=== PATIENT | male | born 1980 | race Caucasian/White ===

== ENCOUNTER → 2018-09-20 12:14 | Emergency (ER) | payer MEDICARE, MEDICAID ==
[~2018-09-20 12:14] MED LIST: Cephalexin CAP* 500 MG PO ONE; Gabapentin CAP(*) 400 MG PO ONE; Ibuprofen TAB* 600 MG PO ONE; Nicotine PATCH 21 MG/24 HR* PATCH TRANSDERM ONE; hydrOXYzine HCL TAB* 25 MG PO ONE; oxyCODONE TAB* 5 MG TAB PO ONE
[2018-09-20 12:45] LABS: Urine Appearance Clear; Urine Bilirubin Negative (Negative); Urine Blood Negative (Negative); Urine Color Yellow; Urine Glucose Negative (Negative); Urine Ketones Negative (Negative); Urine Nitrite Negative (Negative); Urine Protein Negative (Negative); Urine Specific Gravity 1.016 (1.010-1.030); Urine Urobilinogen Negative (Negative)
[2018-09-20 13:01] LABS: ABS Basophils 0.1 10^3/ul (0-0.2); ABS Eosinophils 0.1 10^3/ul (0-0.6); ABS Lymphocytes 1.9 10^3/ul (1.0-4.8); ABS Monocytes 0.5 10^3/ul (0-0.8); ABS Neutrophils 4.8 10^3/ul (1.5-7.7); ABS Nucleated RBC 0 10^3/ul; Eosinophil % 0.9 %; Hematocrit 47 % (36-46); Hemoglobin 16.1 g/dL (14.0-18.0); Lymphocyte % 25.9 %; Mean Corpuscular HGB Conc 35 g/dL (31-36); Mean Corpuscular Hemoglobin 31 pg (27-31); Mean Corpuscular Volume 89 fL (80-94); Mean Platelet Volume 8.3 fL (7.4-10.4); Nucleated Red Blood Cells % 0; Platelet Count 246 10^3/uL (150-450); Red Blood Count 5.24 10^6 /uL (4.18-5.48); Red Cell Distribution Width 14 % (10.5-15); White Blood Count 7.3 10^3/uL (3.5-10.8)
[2018-09-20 13:11] LABS: Urine Benzodiazepine Screen None Detected (None Detect); Urine Opiates Screen None Detected (None Detect)
[2018-09-20 13:13] LABS: ALT 27 U/L (7-52); AST 21 U/L (13-39); Acetaminophen < 15 mcg/mL; Albumin 4.7 g/dL (3.2-5.2); Albumin/Globulin Ratio 1.5 (1-3); Alcohol < 10 mg/dL (<10); Alkaline Phosphatase 55 U/L (34-104); Anion Gap 10 mmol/L (2-11); BUN/Creatinine Ratio 18.2 (8-20); Blood Urea Nitrogen 18 mg/dL (6-24); CO2 Carbon Dioxide 26 mmol/L (22-32); Calcium 9.4 mg/dL (8.6-10.3); Chloride 102 mmol/L (101-111); EGFR African American 101.3 (>60); EGFR Non-African American 83.7 (>60); Globulin 3.2 g/dL (2-4); Glucose 94 mg/dL (70-100); Potassium 4.3 mmol/L (3.5-5.0); Salicylate < 2.50 mg/dL (<30); Sodium 138 mmol/L (135-145); Total Protein 7.9 g/dL (6.4-8.9)
[2018-09-20 13:27] LABS: TSH (Thyroid Stimulating Horm) 1.28 mcIU/mL (0.34-5.60)
[2018-09-20 18:05] VITALS: BP 0/0
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
== END | disposition home or self-care (01) ==
LOC: ED 12:14
DX: R45.851 Suicidal ideations (principal); F41.9 Anxiety disorder, unspecified; F32.9 Major depressive disorder, single episode, unspecified; Z59.0 Homelessness; R45.6 Violent behavior; F17.210 Nicotine dependence, cigarettes, uncomplicated
CPT/HCPCS: 36415; 80053; 80307; 80320; 80329; 81003; 84443; 85025; 99285; A9270-GY; G0480

== ENCOUNTER 2018-09-21 12:10 | Emergency (ER) | payer MEDICARE, MEDICAID ==
[2018-09-21] MEDS ORDERED: Ketorolac INJ* 60 MG/2 ML VIAL IM ONE (13:50)
[2018-09-21] MEDS ORDERED: Cephalexin CAP* 500 MG PO ONE (13:50)
[2018-09-21 14:14] VITALS: BP 139/96
--- NOTE | 2018-09-22 06:40 | ED ---
Throat Pain/Nasal Congestion - HPI Summary HPI Summary: Patient is a 38-year-old male presenting to the ED with right-sided upper dental pain. He was seen in the ED yesterday for mental health evaluation. He states he was given antibiotics at that time for dental infection, however this was never prescribed to him upon discharge. He is requesting pain control as well. He states the pain is been present times approximately 5 days, has not been improving or worsening. He denies any swelling. He is endorsing pain radiating from the right upper jaw to the right lower jaw as well as into the neck. Denies any trismus. Denies any dysphagia or odynophagia. He has never had a dental infection the past. He currently does not have a dentist. Denies any fevers, sweats, chills. - History of Current Complaint Chief Complaint: EDDentalPain Time Seen by Provider: 09/21/18 12:22 Hx Obtained From: Patient Onset/Duration: Sudden Onset Severity: Moderate Associated Signs And Symptoms: Positive: Negative - Epiglottits Risk Factors Epiglottis Risk Factors: Negative - Allergies/Home Medications Allergies/Adverse Reactions: Allergies Allergy/AdvReac Type Severity Reaction Status Date / Time No Known Allergies Allergy Verified 09/21/18 12:16 PMH/Surg Hx/FS Hx/Imm Hx Previously Healthy: Yes Psychiatric History: Reports: Hx of Violent Episodes Against Others Denies: Hx Eating Disorder - Immunization History Hx Pertussis Vaccination: No Immunizations Up to Date: Yes Infectious Disease History: No Infectious Disease History: Denies: Traveled Outside the [place] in Last 30 Days - Social History Occupation: Unemployed Lives: Alone - homeless Alcohol Use: None Alcohol Amount: 3 weeks sober Hx Substance Use: No Substance Use Type: Reports: None Substance Use Comment - Amount & Last Used: 3 weeks sober Hx Tobacco Use: Yes Smoking Status (MU): Heavy Every Day Tobacco Smoker Review of Systems Constitutional: Negative Negative: Fever, Chills, Fatigue, Skin Diaphoresis Positive: Dental Pain. Negative: Epistaxis, Sore Throat, Ear Ache, Nasal Discharge Negative: Palpitations, Chest Pain Positive: no symptoms reported, see HPI Negative: Arthralgia, Myalgia Skin: Negative Neurological: Negative All Other Systems Reviewed And Are Negative: Yes Physical Exam Triage Information Reviewed: Yes Vital Signs On Initial Exam: Initial Vitals Temp Pulse Resp BP Pulse Ox 96.2 F 111 18 144/99 96 09/21/18 12:13 09/21/18 12:13 09/21/18 12:13 09/21/18 12:13 09/21/18 12:13 Vital Signs Reviewed: Yes Appearance: Positive: Well-Appearing, Well-Nourished Skin: Positive: Skin Color Reflects Adequate Perfusion Head/Face: Positive: Normal Head/Face Inspection Eyes: Positive: EOMI, IVANA, Conjunctiva Clear Dental: Positive: Other - dental pain to the upper jaw Neck: Positive: Supple Respiratory/Lung Sounds: Positive: Clear to Auscultation, Breath Sounds Present Cardiovascular: Positive: RRR. Negative: Leg Edema Left, Leg Edema Right Musculoskeletal: Positive: Normal Neurological: Positive: Speech Normal Psychiatric: Positive: Affect/Mood Appropriate Diagnostics - Vital Signs Vital Signs Temp Pulse Resp BP Pulse Ox 09/21/18 14:13 98.2 F 75 14 139/96 95 09/21/18 12:13 96.2 F 111 18 144/99 96 - Laboratory Lab Statement: Any lab studies that have been ordered have been reviewed, and results considered in the medical decision making process. EENT Course/Dx - Course Course Of Treatment: Evaluation of dental pain. There is pain to the right upper jaw with palpation, no pain to palpation of the lower jaw or neck. There is no swelling or ecchymosis. No drainage, aphthous ulcers, erythema, or gingivostomatitis noted. He is given antibiotics and prescription for ibuprofen. - Diagnoses Provider Diagnoses: Pain, dental Discharge - Sign-Out/Discharge Documenting (check all that apply): Patient Departure Patient Received Moderate/Deep Sedation with Procedure: No - Discharge Plan Condition: Stable Disposition: HOME Prescriptions: Cephalexin CAP* [Keflex CAP*] 500 mg PO TID #21 cap MDD 3 Ibuprofen TAB* [Motrin TAB* 600 MG] 600 mg PO Q6H PRN #20 tab PRN Reason: Pain Patient Education Materials: Toothache (ED) Referrals: No Primary Care Phys,NOPCP [Primary Care Provider] - Additional Instructions: Keflex 3 times daily 7 days Ibuprofen up to 4 times daily as needed for any discomfort Use heat to the area If symptoms worsen, return to the ED - Billing Disposition and Condition Condition: STABLE Disposition: Home
== END 2018-09-21 14:13 | disposition home or self-care (01) ==
LOC: ED 12:10
DX: K08.89 Other specified disorders of teeth and supporting structures (principal); F17.210 Nicotine dependence, cigarettes, uncomplicated; Z59.0 Homelessness
CPT/HCPCS: 96372; 99282; A9270-GY; J1885

== ENCOUNTER 2019-04-01 14:21 | Inpatient (IN) | payer MEDICARE, MEDICAID ==
[2019-04-01] MEDS ORDERED: LORazepam INJ* 2 MG/ML 1 ML VIAL ONE (14:34)
[2019-04-01] MEDS ORDERED: diPHENhydraMINE IV* 50 MG/ML 1 ml VIAL (BENADRYL) ONE (14:35)
[2019-04-01] MEDS ORDERED: Haloperidol INJ IV/IM* 5 MG/ML AMP ONE (14:35)
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
[2019-04-01] MEDS ORDERED: Midazolam concentrated* 5 MG/ML 1 ml VIAL ONE (15:17)
[2019-04-01] MEDS ORDERED: KETAMINE HCL* 50 MG/ML 10 ML VIAL IM ONE ×2 (15:21→15:24)
[2019-04-01] MEDS ORDERED: KETAMINE HCL* 50 MG/ML 10 ML VIAL ONE (15:23)
[2019-04-01 16:02] LABS: ABS Basophils 0.1 10^3/ul (0-0.2); ABS Eosinophils 0.2 10^3/ul (0-0.6); ABS Lymphocytes 2.1 10^3/ul (1.0-4.8); ABS Monocytes 0.5 10^3/ul (0-0.8); Eosinophil % 2.3 %; Hematocrit 43 % (42-52); Mean Corpuscular HGB Conc 35 g/dL (31-36); Mean Corpuscular Hemoglobin 31 pg (27-31); Mean Corpuscular Volume 90 fL (80-94); Mean Platelet Volume 8.1 fL (7.4-10.4); Nucleated Red Blood Cells % 0.3; Platelet Count 226 10^3/uL (150-450); Red Blood Count 4.82 10^6 /uL (4.18-5.48); Red Cell Distribution Width 15 % (10-15); White Blood Count 6.7 10^3/uL (3.5-10.8)
[2019-04-01 16:24] LABS: Anion Gap 14 mmol/L (2-11); BUN/Creatinine Ratio 17.8 (8-20); Blood Urea Nitrogen 16 mg/dL (6-24); CO2 Carbon Dioxide 21 mmol/L (22-32); Calcium 8.9 mg/dL (8.6-10.3); Chloride 104 mmol/L (101-111); EGFR African American 113.1 (>60); EGFR Non-African American 93.5 (>60); Glucose 101 mg/dL (70-100); Potassium 4.1 mmol/L (3.5-5.0); Sodium 139 mmol/L (135-145)
[2019-04-01 17:03] LABS: TSH (Thyroid Stimulating Horm) 1.15 mcIU/mL (0.34-5.60)
[2019-04-01 17:04] LABS: Acetaminophen < 15 mcg/mL; Salicylate < 2.50 mg/dL (<30)
[2019-04-01] MEDS ORDERED: LORazepam TAB(*) 1 MG PO ONE (18:49)
--- NOTE | 2019-04-01 19:37 | ED ---
Progress - Progress Note Progress Note: This patient was signed out from upon shift change on 04.01.19 date at 1900 time, awaiting psychiatric evaluation and pending disposition. - Consult/PCP Time Called: 18:20 Re-Evaluation - Re-Evaluation First Eval Re-Evaluation Time: 14:45 Comment: After giving the B52, pt was awake, alert, and agitated. Second Eval Re-Evaluation Time: 15:25 Comment: 4 point physical restraints were ordered. Third Eval Re-Evaluation Time: 15:30 Comment: Pt is still agitated but in 4 point restraints, is becoming more cooperative. Ketamine was also given after. Course/Dx - Course Course Of Treatment: This patient was signed out from upon shift change on 04.01.19 date at 1900 time, awaiting psychiatric evaluation and pending disposition. Mental health bisque finisher reviewed case with Dr. Zuleta, psychiatry. They recommend admission. The patient will be admitted. - Diagnoses Provider Diagnoses: Schizoaffective disorder - Provider Notifications Time Discussed With Above Provider: 22:30 Instructed by Provider To: Other - Dr. Zuleta, psychiatry, recommends admission. Discharge ED - Sign-Out/Discharge Documenting (check all that apply): Patient Departure - ADMIT - Discharge Plan Condition: Stable [place] [place] [place]illing Disposition and Condition Condition: STABLE Disposition: Psychiatric [place] [facility] [place] Attestation Statements Document Initiated by Scribe: Yes Documenting Scribe: Dalila Layton Provider For Whom Jazzy is Documenting (Include Credential): Alejandro Valdes MD Scribe Attestation: I, Dalila Layton, scribed for Alejandro Valdes MD on 04/02/19 at 1831. Scribe Documentation Reviewed: Yes Provider Attestation: The documentation as recorded by the scribe, Dalila Layton accurately reflects the service I personally performed and the decisions made by me, Alejandro Valdes MD Status of Scribe Document: Viewed
[2019-04-01 19:44] LABS: Alcohol 50 mg/dL (<10)
[2019-04-01] MEDS ORDERED: Nicotine PATCH 21 MG/24 HR* PATCH TRANSDERM ONE (20:53)
[2019-04-01] MEDS ORDERED: clonazePAM TAB(*) 1 MG PO ONE (22:16)
[2019-04-01] MEDS ORDERED: QUEtiapine TAB* 300 MG ONE (22:44)
[2019-04-01] MEDS ORDERED: Gabapentin CAP(*) 300 MG ONE (22:44)
[2019-04-01] MEDS ORDERED: Sertraline* 100 MG TAB ONE (22:46)
[2019-04-01] MEDS: Gabapentin CAP(*) 400 MG PO SCH (22:50)
[2019-04-01] MEDS ORDERED: Al Hydrox/Mg Hydrox/Simet LIQ* 30 ML UDC PO PRN (23:57)
[2019-04-01] MEDS ORDERED: Acetaminophen TAB* 325 MG PO PRN (23:57)
[2019-04-01] MEDS ORDERED: Haloperidol TAB* 5 MG PO PRN (23:58)
[2019-04-02] MEDS ORDERED: LORazepam TAB(*) 1 MG PO PRN
[2019-04-02] MEDS: Sertraline* 100 MG TAB PO SCH (11:15)
[2019-04-02] MEDS: Gabapentin CAP(*) 400 MG PO SCH (11:16)
[2019-04-02] MEDS: Vitamin THERAPEUTIC TAB PO SCH (11:16)
[2019-04-02] MEDS ORDERED: Nicotine* 4MG (FRUIT FLAVOR) GUM PO PRN (11:26)
[2019-04-02] MEDS: clonazePAM TAB(*) 0.5 MG PO PRN ×2 (11:54→20:10)
[2019-04-02] MEDS: Nicotine PATCH 21 MG/24 HR* PATCH TRANSDERM SCH (11:54)
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
[2019-04-02] MEDS: Gabapentin CAP(*) 300 MG PO SCH (17:11)
[2019-04-02] MEDS ORDERED: QUEtiapine TAB* 300 MG PO SCH (21:00)
[2019-04-02] MEDS ORDERED: Gabapentin CAP(*) 400 MG PO SCH (21:00)
[2019-04-02] MEDS ORDERED: QUEtiapine XR TAB* 200 MG PO SCH (21:00)
[2019-04-02] MEDS ORDERED: Gabapentin CAP(*) 300 MG PO SCH (21:00)
[2019-04-02] MEDS ORDERED: Nicotine Patch Removal NOTE FOLLOW UP SCH (21:00)
[2019-04-03] MEDS: Gabapentin CAP(*) 300 MG PO SCH (08:28)
[2019-04-03] MEDS: Vitamin THERAPEUTIC TAB PO SCH (08:29)
[2019-04-03] MEDS: Sertraline* 100 MG TAB PO SCH (08:29)
[2019-04-03] MEDS: Nicotine PATCH 21 MG/24 HR* PATCH TRANSDERM SCH (08:30)
[2019-04-03] MEDS: clonazePAM TAB(*) 0.5 MG PO PRN (08:33)
[2019-04-03 10:49] VITALS: BP 155/78
[2019-04-03 13:23] LABS: Urine Benzodiazepine Screen Presumptive Positive (None Detect); Urine Buprenorphine Screen None Detected (None Detect); Urine Hydrocodone Screen None Detected (None Detect); Urine Opiates Screen None Detected (None Detect)
[2019-04-03 15:56] LABS: HDL Cholesterol 49.4 mg/dL
--- NOTE | 2019-04-06 12:15 | DS ---
CC: Dr. Arizmendi; [facility] * DATE OF ADMISSION: 04/01/2019. DATE OF DISCHARGE: 04/03/2019. SUPERVISING PSYCHIATRIST: Dr. Rolf Amado * (dictated by RAMÓN Dobson ). DIAGNOSES: Schizoaffective disorder, alcohol use disorder, cannabis use disorder, tobacco use disorder, PTSD. CONDITION AT THE TIME OF DISCHARGE: Improved. The patient denied suicidal ideation throughout admission. He reports that he referred to past suicidality in a session with a counselor recently. Throughout the hospitalization, he has denied suicidality ideation. He has been compliant with medications and programming. He has been cooperative with admission process. He has been safe on all checks and in behavior control. He advocates for discharge and reports desire to follow-up with outpatient providers. The patient is discharged to home. MENTAL STATUS EXAM: The patient is a 38-year-old white male who appears stated age. He is tall with a muscular build. He has thinning hair that is long in the back. He wears a goatee and a bandana on his head. He is casually dressed in his own clothing. He is cooperative and answers questions fully. The patient is alert and oriented times three. Eye contact is good. Speech is soft , articulate, and spontaneous. Concentration is good. Memory is 3/3. Mood is euthymic with full range of affect. No abnormal psychomotor activity noted. Thought process is logical, coherent, and goal directed. Thought content is negative for suicidal ideation. He denies HI or . He denies paranoid ideation or delusional thought process. Insight and judgment are fair, improved. Intellect is average and fund of knowledge is adequate. DISCHARGE INSTRUCTIONS: A. Medications: The only medication change we made was changing Quetiapine to XR and increasing it to 800 mg at bedtime. The patient tolerated this well. He was given Clonazepam on an as needed basis. The following medications can be resumed through Dr. Arizmendi: 1. Clonazepam 1 mg p.o. t.i.d. prn anxiety. 2. Gabapentin 300 mg twice a day, along with Gabapentin 800 mg at bedtime. 3. Sertraline 200 mg daily. B. Diet: Regular. Encourage low cholesterol, low fat. C. Activity: Ambulation as tolerated. Tobacco cessation was declined by the patient. At the time of discharge, hemoglobin A1c is normal at 5.4, lipid panel noteworthy for triglycerides at 556 and cholesterol at 230. D. Follow-up care: The patient will follow-up with his primary care provider Dr. Arizmendi on April 08 and he will return to [facility] with an appointment with his therapist on April 07. E. Substance use follow-up: Patient declined offer of substance use referrals or medication for alcohol or drug use. HOSPITAL COURSE - PART A: Reason for admission: The patient presented to the emergency department via EMS and police after bizarre behavior on the bus and telling outpatient providers he had thoughts of suicide. Upon arrival to the hospital, the patient endorsed suicidal ideation, severe delusions, hallucinations, and paranoia. Walter is a 38-year-old white male, domiciled, mentally disabled with reported history of schizoaffective disorder who presented to the ED due to disorganized and unsafe behavior in the community. According to collateral from [facility], he has been exhibiting delusional and paranoid behavior. While in the emergency room, he was agitated and not cooperative with the evaluation process. He received IM medications including Haloperidol, Lorazepam, and Ketamine. Since arrival to the Mental Health Unit, the patient has been in behavioral control. He presents as guarded, but is cooperative with interview. He reports he does not feel like he needs to be hospitalized. He states he has been feeling panicky and had a psychogenic seizure a couple days ago. He has recently been seen by Dr. Arizmendi in [place] who prescribed medications that he is currently taking, including Quetiapine, Sertraline, Clonazepam, and Gabapentin. The patient states he has a history of schizoaffective disorder and appears to have some insight about this. He states that he experiences tumultuous mood swings. He states that when he is in public he tries to behave as sanely as possible. He reports having social anxiety and extreme paranoia. He states that he had periods of depression where he does not leave his house and has periods of insomnia along with racing thoughts. He denies history of hallucinations. He reports he becomes delusional and that sometimes he thinks he is a dragon or thinks that fictitious movies are happening in real time to him. He states that just last week he thought the woman from [employer] was after him for seven days. The patient is relatively new to the area. He was a patient at [facility] in August of this year and was seen in our ER. At that time, he did not like being at [facility] and was hoping to be transferred to a different substance use treatment facility or to a prison house. He did not mention this rehab to me during interview. He denies suicide attempts or history of self-harm. He reports he has lived all over the country and been in very many toxic relationships. He states that in the last week his most recent ex- girlfriend, Kirstin, was trying to contact him as she was in a dangerous situation with a new relationship. Walter identifies that having contact with her was destabilizing for him. HOSPITAL COURSE - PART B: Psychiatric treatment rendered: The patient was admitted to the Adult Behavioral Services Unit on an involuntary status. Code status was full. He was placed on 15 minute checks for safety. He participated in supportive milieu, individual sessions with staff and psychoeducational groups. As stated above, we changed Clonazepam to as needed and Quetiapine from immediate release to extended release and increased the dose to 800 mg. On the first day of admission, the patient submitted a court request for retention. He was pleasant and cooperative with admission and discharge process. He minimized seriousness of substance use as he was intoxicated prior to arrival to the ED. His urine drug screen was positive for benzodiazepine and cannabinoids. Outreach was made to [facility] to identify collateral. Due to obligation to treat in the least restrictive setting, discharge was agreed upon by treatment team. The patient continued to deny urges for self-harm or violent ideation. Unfortunately, the patient is not accepting referrals for substance use treatment. We hope that he returns to [facility] and cooperates with being assigned to a psychiatrist. Also, I recommend that the patient follow-up with Dr. Arizmendi in regards to the elevated triglycerides and cholesterol. AUBRIE LARRY NP [id number]/[facility] #: [id number] JEAN-PIERRE
== END 2019-04-03 14:47 | disposition home or self-care (01) | DRG 885 ==
LOC: ED 14:21 → BSU 21:41
PROVIDERS: ADMIT Psychiatry & Neurology Psychiatry; ATTEND Psychiatry & Neurology Psychiatry
DX: F25.9 Schizoaffective disorder, unspecified (principal); R45.851 Suicidal ideations; F43.10 Post-traumatic stress disorder, unspecified; F12.90 Cannabis use, unspecified, uncomplicated; Z72.89 Other problems related to lifestyle; Z62.810 Personal history of physical and sexual abuse in childhood; F17.210 Nicotine dependence, cigarettes, uncomplicated; Z79.899 Other long term (current) drug therapy; Z80.8 Family history of malignant neoplasm of other organs or systems
CPT/HCPCS: 36415; 80048; 80061; 80307; 80320; 80329; 83036; 83721; 84443; 85025; 96372; 99222; 99238; 99284; A9270-GY; G0480; J1200; J1630; J2060; J2250

== ENCOUNTER 2019-07-12 06:47 | Inpatient (IN) | payer MEDICARE, MEDICAID ==
[2019-07-12] MEDS ORDERED: Nicotine PATCH 14 MG/24 HR* PATCH TRANSDERM ONE (07:25)
--- NOTE | 2019-07-12 07:30 | ED ---
Psychiatric Complaint - HPI Summary HPI Summary: 38 year old male presents to the ED with a chief complaint of mental health issues for the last week, worse since 4 days ago. Patient reports frequent arguments with his girlfriend about housing. He claims that he has a safe place to live at the moment. Patient reports thoughts of self harm but has not demonstrated acts. No HI. No self injury. Pt denies any physical complaints no cp, sob, abd pain no n/v/d No hallucination. Pt states has schizoaffective disorder - followed at PCP and [facility] group therapy. PMHx of schizo-affective disorder and insomnia. Patient smokes tobacco, 1 ppd. He drinks alcohol occasionally, but has increased drinking recently. He has had 5 drinks today, and reports feeling slightly intoxicated. Patient's medication as entered in EMR by applicator sprayer reviewed this visit. - History Of Current Complaint Chief Complaint: EDMentalHealth Time Seen by Provider: 07/12/19 07:11 Hx Obtained From: Patient Onset/Duration: Gradual Onset, Lasting Days, Worse Since - 4 days ago Timing: Constant Character: Depressed Aggravating Factor(s): Other - Arguments with girlfriend Related History: Positive For: Prior Psychiatric Issues - schizo-affective disorder Has Suicidal: Reports: Thoughts. Denies: Demonstrates Gesture Has Homicidal: Denies: Thoughts - Allergies/Home Medications Allergies/Adverse Reactions: Allergies Allergy/AdvReac Type Severity Reaction Status Date / Time No Known Allergies Allergy Verified 07/12/19 06:53 Home Medications: Home Medications clonazePAM TAB(*) [Klonopin TAB(*)] 1 mg PO TID 07/12/19 [History Confirmed ] PMH/Surg Hx/FS Hx/Imm Hx Previously Healthy: Yes Sensory History: Denies: Hx Contacts or Glasses, Hx Vision Problem, Hx Deafness, Hx Hearing Aid Opthamlomology History: Denies: Hx Contacts or Glasses, Hx Vision Problem Psychiatric History: Reports: Hx of Violent Episodes Against Others, Other Psychiatric Issues/Disorders - schizoaffective disorder Denies: Hx Eating Disorder - Surgical History Surgical History: None Infectious Disease History: No Infectious Disease History: Denies: Traveled Outside the [place] in Last 30 Days - Family History Known Family History: Positive: Non-Contributory - Social History Occupation: Unemployed Lives: With Family Alcohol Use: Occasionally Alcohol Amount: 3 weeks sober Hx Substance Use: No Substance Use Type: Reports: None Substance Use Comment - Amount & Last Used: 3 weeks sober Hx Tobacco Use: Yes Smoking Status (MU): Heavy Every Day Tobacco Smoker Review of Systems Negative: Fever Eyes: Negative ENT: Negative Cardiovascular: Negative Respiratory: Negative Gastrointestinal: Negative Genitourinary: Negative Musculoskeletal: Negative Positive: Depressed All Other Systems Reviewed And Are Negative: Yes Physical Exam - Summary Physical Exam Summary: Vital Signs Reviewed: Yes A+Ox3, no distress Eyes: Conjunctiva injection, EOM intact ENT: Hearing grossly normal, mmoist Neck: Positive: Supple Respiratory: Positive: No respiratory distress, No accessory muscle use + CTA throughout no w/r Cardiovascular: RRR nl s1, s2 no m/r CBT <2 sec abd soft + BS nt/nd no guarding, no distension Musculoskeletal Exam: CORTEZ x 4 without difficulty Strength Intact, ROM Intact Neurological: Positive: Alert and oriented, appropriate, + sensation throughout Psychological: Positive: Normal Response To examiner, normal tempo speech - non pressure, non tangential - appropriate Skin: Positive: no rash, no ecchymosis - scratches to right forearm - unclear source per patient Triage Information Reviewed: Yes Vital Signs On Initial Exam: Initial Vitals Temp Pulse Resp BP Pulse Ox 95.6 F 103 18 119/92 97 07/12/19 06:48 07/12/19 06:48 07/12/19 06:48 07/12/19 06:48 07/12/19 06:48 Procedures - Sedation Patient Received Moderate/Deep Sedation with Procedure: No Diagnostics - Vital Signs Vital Signs Temp Pulse Resp BP Pulse Ox 07/12/19 06:48 95.6 F 103 18 119/92 97 - Laboratory Result Diagrams: 07/12/19 07:30 07/12/19 07:30 Lab Statement: Any lab studies that have been ordered have been reviewed, and results considered in the medical decision making process. Re-Evaluation - Re-Evaluation First Eval Comment: pt ate breakfast. no complaints -resting. reviewed labs - 40mEq KCL ordered. need urine. changed observation Q15 - no SI/HI. contact [facility] - cleared Second Eval Comment: Schizoaffective disorder - [place] [facility] [place] psychiatrist Course/Dx - Course Course Of Treatment: Patient presents to urgent care stating he's having a mental health crisis. Patient with a history of schizoaffective disorder. Patient is on medication for this prescribed through Dr. Arizemndi his PCP. Patient states he's been having increasing drinking over the last couple days and fighting with her significant other and is discussing housing options. Patient states currently he has a safe place to go. Patient denies any attempt at self injury or homicidal ideation but states he has been thinking more about and dying. Patient does not have a plan. Patient underwent hurt himself. On exam vital signs are stable. Patient cooperative and appropriate. Patient does have nonsuturable abrasions to his right arm CT does not became the appear to be scratch purvis. Patient states his tetanus is up-to-date. We' ll give patient breakfast check labs and assessment to evaluate patient. Patient comfortable in agreement with plan. Also a patient on nicotine patches he smokes more than a pack a day. Patient agreeable to plan. - Differential Dx/Clinical Impression Provider Diagnosis: Hypokalemia, Depression Discharge ED - Sign-Out/Discharge Documenting (check all that apply): Patient Departure - Discharge Plan Condition: Stable Disposition: ADMITTED TO [facility] Referrals: No Primary Care Phys,NOPCP [Primary Care Provider] - - Billing Disposition and Condition Condition: STABLE Disposition: Admitted to [facility] - Attestation Statements Document Initiated by Jazzy: Yes Documenting Scribe: Usama Guerrero Provider For Whom Jazzy is Documenting (Include Credential): Gia Colon MD Scribe Attestation: Usama Solis, scribed for Gia Colon MD on 07/12/19 at 1223. Scribe Documentation Reviewed: Yes Provider Attestation: The documentation as recorded by the scribeUsama accurately reflects the service I personally performed and the decisions made by me, Gia Colon MD Status of Scribe Document: Viewed
[2019-07-12 07:39] LABS: ABS Basophils 0.1 10^3/ul (0-0.2); ABS Lymphocytes 1.7 10^3/ul (1.0-4.8); ABS Monocytes 0.8 10^3/ul (0-0.8); ABS Neutrophils 9.2 10^3/ul (1.5-7.7); Eosinophil % 0.4 %; Hematocrit 40 % (42-52); Hemoglobin 14.1 g/dL (14.0-18.0); Lymphocyte % 14.3 %; Mean Corpuscular HGB Conc 35 g/dL (31-36); Mean Corpuscular Hemoglobin 32 pg (27-31); Mean Corpuscular Volume 91 fL (80-94); Mean Platelet Volume 8.3 fL (7.4-10.4); Platelet Count 214 10^3/uL (150-450); Red Blood Count 4.41 10^6 /uL (4.18-5.48); Red Cell Distribution Width 14 % (10-15); White Blood Count 11.8 10^3/uL (3.5-10.8)
[2019-07-12 07:52] LABS: Albumin 4.2 g/dL (3.2-5.2); Anion Gap 11 mmol/L (2-11); CO2 Carbon Dioxide 22 mmol/L (22-32); Calcium 8.6 mg/dL (8.6-10.3); Chloride 107 mmol/L (101-111); Potassium 3.1 mmol/L (3.5-5.0); Sodium 140 mmol/L (135-145)
[2019-07-12 07:58] LABS: ALT 30 U/L (7-52); AST 24 U/L (13-39); Albumin/Globulin Ratio 1.7 (1-3); Alkaline Phosphatase 50 U/L (34-104); BUN/Creatinine Ratio 18.2 (8-20); Blood Urea Nitrogen 18 mg/dL (6-24); EGFR African American 101.3 (>60); EGFR Non-African American 83.7 (>60); Globulin 2.5 g/dL (2-4); Glucose 100 mg/dL (70-100); Total Protein 6.7 g/dL (6.4-8.9)
[2019-07-12 08:03] LABS: Acetaminophen < 15 mcg/mL; Alcohol 107 mg/dL (<10); Salicylate < 2.50 mg/dL (<30)
[2019-07-12 08:19] LABS: TSH (Thyroid Stimulating Horm) 2.16 mcIU/mL (0.34-5.60)
[2019-07-12] MEDS ORDERED: Potassium Chlor TAB* 20 MEQ TAB.ER PO ONE (08:34)
[2019-07-12] MEDS ORDERED: Acetaminophen TAB* 325 MG PO PRN (12:55)
[2019-07-12] MEDS: clonazePAM TAB(*) 1 MG PO SCH ×2 (15:36→21:30)
[2019-07-12] MEDS: Gabapentin CAP(*) 400 MG PO SCH ×3 (15:38→21:29)
[2019-07-12] MEDS: Nicotine* 2MG (FRUIT FLAVOR) GUM PO PRN (16:16)
[2019-07-12] MEDS: QUEtiapine XR TAB* 200 MG PO SCH (21:29)
[2019-07-12] MEDS: Nicotine Patch Removal NOTE PATCH OFF SCH (21:29)
[2019-07-13] MEDS: Nicotine PATCH 21 MG/24 HR* PATCH TRANSDERM SCH (08:27)
[2019-07-13] MEDS: Gabapentin CAP(*) 400 MG PO SCH ×4 (08:28→21:01)
[2019-07-13] MEDS: Sertraline* 100 MG TAB PO SCH (08:28)
[2019-07-13] MEDS: Vitamin THERAPEUTIC TAB PO SCH (08:28)
[2019-07-13] MEDS: clonazePAM TAB(*) 1 MG PO SCH ×3 (08:29→20:54)
[2019-07-13] MEDS ORDERED: Influenza VAC *QUAD* 2019-20* 0.5 ML SYRINGE IM ONE (09:00)
[2019-07-13] MEDS ORDERED: Amoxicillin PO (*) 500 MG CAP PO ONE (11:00)
[2019-07-13] MEDS: Nicotine* 2MG (FRUIT FLAVOR) GUM PO PRN (13:53)
[2019-07-13] MEDS: Amoxicillin PO (*) 500 MG CAP PO SCH ×2 (14:44→20:56)
[2019-07-13] MEDS: Al Hydrox/Mg Hydrox/Simet LIQ* 30 ML UDC PO PRN ×2 (14:46→21:59)
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
[2019-07-13] MEDS: QUEtiapine XR TAB* 200 MG PO SCH (20:55)
[2019-07-13] MEDS: Nicotine Patch Removal NOTE PATCH OFF SCH (20:57)
[2019-07-14] MEDS: Sertraline* 100 MG TAB PO SCH (07:47)
[2019-07-14] MEDS: clonazePAM TAB(*) 1 MG PO SCH ×3 (07:47→21:16)
[2019-07-14] MEDS: Vitamin THERAPEUTIC TAB PO SCH (07:47)
[2019-07-14] MEDS: Amoxicillin PO (*) 500 MG CAP PO SCH ×3 (07:47→21:16)
[2019-07-14] MEDS: Gabapentin CAP(*) 400 MG PO SCH ×4 (07:47→21:16)
[2019-07-14] MEDS: Nicotine PATCH 21 MG/24 HR* PATCH TRANSDERM SCH (07:49)
[2019-07-14] MEDS ORDERED: Influenza VAC *QUAD* 2019-20* 0.5 ML SYRINGE IM ONE (09:00)
[2019-07-14] MEDS: Nicotine* 2MG (FRUIT FLAVOR) GUM PO PRN (14:40)
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
[2019-07-14 19:17] LABS: Urine Benzodiazepine Screen Presumptive Positive (None Detect); Urine Buprenorphine Screen None Detected (None Detect); Urine Hydrocodone Screen None Detected (None Detect); Urine Opiates Screen None Detected (None Detect)
[2019-07-14] MEDS: QUEtiapine XR TAB* 200 MG PO SCH (21:17)
[2019-07-14] MEDS: Nicotine Patch Removal NOTE PATCH OFF SCH (21:20)
[2019-07-15] MEDS: Amoxicillin PO (*) 500 MG CAP PO SCH ×3 (08:15→22:13)
[2019-07-15] MEDS: Gabapentin CAP(*) 400 MG PO SCH ×4 (08:15→20:42)
[2019-07-15] MEDS: Sertraline* 100 MG TAB PO SCH (08:16)
[2019-07-15] MEDS: clonazePAM TAB(*) 1 MG PO SCH (08:16)
[2019-07-15] MEDS: Vitamin THERAPEUTIC TAB PO SCH (08:16)
[2019-07-15] MEDS: Nicotine PATCH 21 MG/24 HR* PATCH TRANSDERM SCH (08:17)
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
[2019-07-15] MEDS ORDERED: clonazePAM TAB(*) 1 MG PO SCH (14:00)
[2019-07-15] MEDS: clonazePAM TAB(*) 0.5 MG PO SCH ×2 (14:14→20:42)
[2019-07-15] MEDS: Nicotine* 2MG (FRUIT FLAVOR) GUM PO PRN (17:02)
[2019-07-15] MEDS: QUEtiapine XR TAB* 200 MG PO SCH (20:44)
[2019-07-15] MEDS: Nicotine Patch Removal NOTE PATCH OFF SCH (20:45)
[2019-07-16] MEDS: Sertraline* 100 MG TAB PO SCH (07:50)
[2019-07-16] MEDS: Gabapentin CAP(*) 400 MG PO SCH ×4 (07:50→21:48)
[2019-07-16] MEDS: Vitamin THERAPEUTIC TAB PO SCH (07:50)
[2019-07-16] MEDS: Nicotine PATCH 21 MG/24 HR* PATCH TRANSDERM SCH (07:50)
[2019-07-16] MEDS: clonazePAM TAB(*) 0.5 MG PO SCH ×3 (07:51→21:48)
[2019-07-16] MEDS: Amoxicillin PO (*) 500 MG CAP PO SCH (07:51)
[2019-07-16] MEDS: Nicotine* 2MG (FRUIT FLAVOR) GUM PO PRN ×3 (12:03→17:20)
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
[2019-07-16] MEDS: QUEtiapine XR TAB* 200 MG PO SCH (21:48)
[2019-07-16] MEDS: Nicotine Patch Removal NOTE PATCH OFF SCH (21:50)
[2019-07-17] MEDS: Nicotine PATCH 21 MG/24 HR* PATCH TRANSDERM SCH (07:44)
[2019-07-17] MEDS: Sertraline* 100 MG TAB PO SCH (07:45)
[2019-07-17] MEDS: Gabapentin CAP(*) 400 MG PO SCH ×2 (07:45→13:03)
[2019-07-17] MEDS: clonazePAM TAB(*) 0.5 MG PO SCH ×2 (07:45→13:03)
[2019-07-17] MEDS: Vitamin THERAPEUTIC TAB PO SCH (07:46)
[2019-07-17 08:46] VITALS: BP 125/86
== END 2019-07-17 13:30 | disposition home or self-care (01) | DRG 885 ==
LOC: ED 06:47 → UNDOADMIN 12:11 → BSU 12:11
PROVIDERS: ADMIT Psychiatry & Neurology Psychiatry; ATTEND Psychiatry & Neurology Psychiatry
DX: F25.9 Schizoaffective disorder, unspecified (principal); R45.851 Suicidal ideations; F43.10 Post-traumatic stress disorder, unspecified; F10.10 Alcohol abuse, uncomplicated; F15.10 Other stimulant abuse, uncomplicated; Y90.5 Blood alcohol level of 100-119 mg/100 ml; F12.90 Cannabis use, unspecified, uncomplicated; Z62.810 Personal history of physical and sexual abuse in childhood; Z79.899 Other long term (current) drug therapy
CPT/HCPCS: 36415; 80053; 80061; 80307; 80320; 80329; 83036; 84443; 85025; 90686; 99222; 99231; 99232; 99233; 99238; 99284; A9270-GY; G0480

== ENCOUNTER 2019-07-18 13:24 | Emergency (ER) | payer MEDICARE, MEDICAID ==
--- NOTE | 2019-07-18 13:35 | ED ---
Psychiatric Complaint - HPI Summary HPI Summary: The patient is a 38 y/o M [facility] of [facility]. He was recently d/c from [facility] yesterday after a 4 day stay. Last night, he sent an email to his ex-girlfriend who has an order of protection against him, with statements relating to suicidality. She called the police who went to the patients house and brought him here this morning. Per police and EMS, the patient was placed in handcuffs but was cooperative with them and understands the need for coming to the ED. EMS note initial tachycardia with improvement to SR and o/w VSS. The patient states that he sent the email because he wants to understand false accusations she is making to various people. He is concerned for this visit affecting his life. When prompted to clarify current status of suicidal ideation, the patient is vague and states, I have beliefs about the right to choose when to that I dont consider illegal or warranting encapturement unsure how to answer or its an option. He admits to previous suicide attempt without success but does not specify the mechanism of which he did so. He reports that he is weary and eager to get home and does not want to be readmitted to the psychiatric unit. He is medication-compliant for his psychiatric medicines for PTSD, schizoaffective disorder. No other PMHx. Current heavy smoker, occasional EtOH use (none today) . 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 He last had Propylhexedrine last night. Police note that they counted the patients Clonazepam this morning to find 8 out of 21 missing, and the patient was observed to grab one and take it while police and EMS were on scene. When asked about this, the patient states he has been lost in thought. Police have not seen the email exchange that warranted the patients visit today, and charges have not been placed, but they will follow through with the case once the patient is safe. Medications reviewed. Allergies noted. - History Of Current Complaint Hx Obtained From: Patient, EMS, Other: - police Onset/Duration: Still Present Severity Initially: Moderate Severity Currently: Moderate Character: Depressed Aggravating Factor(s): Other - unwarranted email exchange with ex-girlfriend last night Alleviating Factor(s): Nothing Related History: Positive For: Prior Psychiatric Issues Has Suicidal: Reports: Thoughts Ingestion History: Type/Name Of Drug - Propylhexedrine last night - Allergies/Home Medications Allergies/Adverse Reactions: Allergies Allergy/AdvReac Type Severity Reaction Status Date / Time No Known Allergies Allergy Verified 07/18/19 14:12 Home Medications: Home Medications Gabapentin CAP(*) [Neurontin 400 mg CAP(*)] 400 mg PO QID #56 cap 07/17/19 [Rx Confirmed 07/18/19] QUEtiapine XR TAB* [Seroquel Xr 200 TAB*] 800 mg PO BEDTIME #30 tab.xr 07/17/19 [Rx Confirmed 07/18/19] Sertraline* [Zoloft*] 200 mg PO DAILY #28 tab 07/17/19 [Rx Confirmed 07/18/19] clonazePAM TAB(*) [Klonopin TAB(*)] 0.5 mg PO SEE INSTRUCTIONS #21 tab MDD 3 tabs 07/17/19 [Rx Confirmed 07/18/19] PMH/Surg Hx/FS Hx/Imm Hx Endocrine/Hematology History: Denies: Hx Diabetes Cardiovascular History: Denies: Hx Hypertension GI History: Reports: Hx Gastroesophageal Reflux Disease Sensory History: Denies: Hx Contacts or Glasses, Hx Vision Problem, Hx Deafness, Hx Hearing Aid Opthamlomology History: Denies: Hx Contacts or Glasses, Hx Vision Problem Psychiatric History: Reports: Hx Post Traumatic Stress Disorder, Hx Inpatient Treatment, Hx Community Mental Health Tx, Hx of Violent Episodes Against Others , Other Psychiatric Issues/Disorders - schizoaffective disorder Denies: Hx Eating Disorder, Hx Suicide Attempt - Surgical History Surgical History: None Surgery Procedure, Year, and Place: none - Family History Known Family History: Negative: Cardiac Disease, Hypertension, Diabetes - Social History Alcohol Use: Occasionally Alcohol Amount: 3 weeks sober Hx Substance Use: Yes Substance Use Type: Reports: Other - OTC Propylhexedrine and Dextromethorphan Substance Use Comment - Amount & Last Used: "dxm" Hx Tobacco Use: Yes Smoking Status (MU): Heavy Every Day Tobacco Smoker Review of Systems Positive: Other - "weary" Positive: Depressed, Other - SI All Other Systems Reviewed And Are Negative: Yes Physical Exam - Summary Physical Exam Summary: Constitutional: Well-developed, Well-nourished, Alert. (-) Distressed Skin: Warm, Dry HENT: Normocephalic; Atraumatic Eyes: Conjunctiva normal Neck: Musculoskeletal ROM normal neck. (-) JVD, (-) Stridor, (-) Tracheal deviation Cardio: Rhythm regular, rate normal, Heart sounds normal; Intact distal pulses; Radial pulses are 2+ and symmetric. (-) Murmur Pulmonary/Chest wall: Effort normal. (-) Respiratory distress, (-) Wheezes, (-) Rales Abd: Soft, (-) tenderness, (-) Distension, (-) Guarding, (-) Rebound Musculoskeletal: (-) Edema Lymph: (-) Cervical adenopathy Neuro: Alert, Oriented x3 Psych: Mood normal and flat affect Triage Information Reviewed: Yes Vital Signs Reviewed: Yes Procedures - Sedation Patient Received Moderate/Deep Sedation with Procedure: No Re-Evaluation - Re-Evaluation First Eval Re-Evaluation Time: 13:45 Comment: Patient is medically clear for MHE. Course/Dx - Course Course Of Treatment: Patient is here with possible suicidal ideation. Patient is released from the [facility] recently. Patient was brought in after he violated an order of protection. Patient was medically cleared by myself. Patient was evaluated by the mental health team and deemed appropriate for outpatient treatment - Differential Dx/Clinical Impression Provider Diagnosis: Adjustment disorder - Physician Notifications Discussed Care Of Patient With: Danny Carter - psychiatry Time Discussed With Above Provider: 15:00 Instructed by Provider To: Other - Dr. Carter and psychiatric team have evaluated the patients case and have determined he is safe for discharge. Discharge ED - Sign-Out/Discharge Documenting (check all that apply): Patient Departure - Patient safe for discharge by [facility]. - Discharge Plan Condition: Stable Disposition: HOME Referrals: [facility] [Outside] - Billing Disposition and Condition Condition: STABLE Disposition: Home - Attestation Statements Document Initiated by Scribe: Yes Documenting Scribe: Linda Crespo Provider For Whom Jazzy is Documenting (Include Credential): Dr. Maurilio Sherman MD Scribe Attestation: Linda Solis, emmettibed for Dr. Maurilio Sherman MD on 07/18/19 at 1741. Scribe Documentation Reviewed: Yes Provider Attestation: The documentation as recorded by the scribe, Linda Crespo accurately reflects the service I personally performed and the decisions made by me, Dr. Maurilio Sherman MD Status of Jazzy Document: Viewed
[2019-07-18 13:36] VITALS: BP 138/95
== END 2019-07-18 15:29 | disposition home or self-care (01) ==
LOC: ED 13:24
DX: F43.20 Adjustment disorder, unspecified (principal); K21.9 Gastro-esophageal reflux disease without esophagitis; F43.10 Post-traumatic stress disorder, unspecified; F25.9 Schizoaffective disorder, unspecified; F17.200 Nicotine dependence, unspecified, uncomplicated; Z79.899 Other long term (current) drug therapy
CPT/HCPCS: 99285